=== PATIENT | female | born 1945 | race Caucasian/White ===

== ENCOUNTER 2017-06-21 10:08 | Emergency (ER) | payer OTHER ==
[~2017-06-21] VITALS: Ht 165.1 cm; Wt 99.8 kg
[~2017-06-21 10:08] MED LIST: ALBU90OI INH; ASPI81CH PO; AZIT250 PO; BENZ100A PO; CEPH500; CEPH500 PO; DOXY100 PO; FENO145 PO; FISH1000 PO; Flonase 0.05% N16 GM; Glucophage1000 MG PO; HORIZANT300 MG PO; HYDCHL12.5 PO; HYDMETSO BOTHEYES; Hydrochlorothia25 MG PO; IBUP800 PO; MUPI2TO TOP; NAPR375 PO; NEBI5 PO; Norco 5-325 Ta1 EACH PO; OXYACE5T PO; POTA8 PO; PROM25 PO; Prinivil10 MG PO; Pseudoephedrine30 MG PO; SULTRIDS PO; TIMO.5OPSO BOTHEYES; [UNRECOGNIZED DRUG - REMARK]
[2017-06-21] MEDS ORDERED: CLON.3TP TOP (10:37)
[2017-06-21] MEDS ORDERED: NITR.6SL SL (10:38)
[2017-06-21] MEDS ORDERED: Nortriptyline H10 MG PO (10:40)
[2017-06-21] MEDS ORDERED: Prednisone20 MG PO (11:11)
[2017-06-21] MEDS ORDERED: Percocet 5-3251 EACH PO (11:11)
== END 2017-06-21 11:17 | disposition home or self-care (01) ==
LOC: ER 10:08
DX: M10.9 Gout, unspecified (principal); Z88.5 Allergy status to narcotic agent; Z79.82 Long term (current) use of aspirin; Z79.899 Other long term (current) drug therapy; Z79.84 Long term (current) use of oral hypoglycemic drugs; I10 Essential (primary) hypertension; Z87.891 Personal history of nicotine dependence
CPT/HCPCS: 73630; 99283

== ENCOUNTER 2018-11-04 14:12 | Inpatient (IN) | payer OTHER ==
[~2018-11-04] VITALS: Ht 165.1 cm; Wt 87.1 kg
[~2018-11-04 14:12] MED LIST changes: -ASPI81CH PO; +Aspirin EC81 MG PO; +Catapres-Tts 21 EACH TOP; +FISH OIL 1,001000 MG PO; -FISH1000 PO; +NITR.6SL SL; +Nortriptyline H10 MG PO; +Percocet 5-3251 EACH PO; +Prednisone20 MG PO; -Prinivil10 MG PO; +ZESTRIL40 MG PO
[2018-11-04 15:04] LABS: BASOPHILS ABSOLUTE AUTO 0.03 K/mm3 (0.00-0.23); BASOPHILS PERCENT AUTO 1 % (0-2); EOSINOPHILS ABSOLUTE AUTO 0.14 K/mm3 (0.00-0.68); EOSINOPHILS PERCENT AUTO 2 % (0-6); Hematocrit 44.9 % (33.0-51.0); Hemoglobin 14.7 g/dL (11.5-16.0); IMMATURE GRAN ABSOLUTE AUTO 0.02 K/mm3 (0.00-0.10); IMMATURE GRAN PERCENT AUTO 0 % (0-1); LYMPHOCYTES ABSOLUTE AUTO 2.11 K/mm3 (0.84-5.20); LYMPHOCYTES PERCENT AUTO 35 % (21-46); MONOCYTES ABSOLUTE AUTO 0.54 K/mm3 (0.16-1.47); MONOCYTES PERCENT AUTO 9 % (4-13); Mean Corpuscular HGB 28.5 pg (26.0-34.0); Mean Corpuscular HGB Conc 32.7 g/dL (31.5-36.5); Mean Corpuscular Volume 87 fL (80-100); Mean Platelet Volume 11.8 fL (9.1-12.4); NEUTROPHILS ABSOLUTE AUTO 3.22 K/mm3 (1.96-9.15); NEUTROPHILS PERCENT AUTO 53 % (41-73); Platelet Count 155 K/mm3 (150-400); RDW Coefficient Variation 13.9 % (11.7-14.2); RDW Standard Deviation 44.9 fL (35.1-46.3); Red Blood Cell Count 5.16 M/mm3 (3.80-5.20); White Blood Cell Count 6.06 K/mm3 (4.00-11.30)
[2018-11-04 15:25] LABS: Troponin I 0.022 ng/mL (0.000-0.040)
[2018-11-04 15:27] LABS: Albumin, Blood 3.6 g/dL (3.4-5.0); Bilirubin, Total 0.9 mg/dL (0.1-1.0); Bun/Creatinine Ratio 24.7 (12.0-20.0); Calcium, Blood 9.2 mg/dL (8.5-10.1); Creatinine, Blood 0.97 mg/dL (0.40-1.00); Globulin, Blood 3.7 g/dL (2.2-4.0); Potassium, Blood 3.9 mmol/L (3.5-5.5); Total Protein, Blood 7.3 g/dL (6.4-8.2)
--- NOTE | 2018-11-04 17:23 | NUR ---
Per family request, I stayed with pt and family providing calm presence and assurance of care. Elva has a edy spirituality and was appreciaitve of prayer and certified genetic counselor. Both pt and family clearly worried, but they responded well to my interventions. Made several visits throughout afternoon. Pt and family awaiting test results and MD recomendations. I will remain available.
[2018-11-04] MEDS ORDERED: VITAMIN D5000 UNIT PO (21:26)
[2018-11-04] MEDS ORDERED: TEMA15 PO (21:32)
[2018-11-04] MEDS ORDERED: HYDRA50 PO (21:33)
[2018-11-04] MEDS ORDERED: COLCRYS0.6 MG PO (21:34)
[2018-11-04] MEDS ORDERED: SPIR25 PO (21:34)
[2018-11-04] MEDS ORDERED: CYAN1000I IM (21:34)
[2018-11-04] MEDS ORDERED: ALBU90OI61 INH (21:35)
[2018-11-04 22:05] LABS: International Normalized Ratio 0.93; Prothrombin Time Results 9.9 Sec (9.7-11.5)
--- NOTE | 2018-11-05 05:08 | NUR ---
PATIENT DENIED ANY FURTHER CHEST PAIN AFTER SHE FELL ASLEEP. PATIENT ABLE TO GET UP THIS MORNING TO COMMODE WITH OUT ANY CHEST PAIN. PATIENT STEADY ON HER FEET. PATIENT SON CAME IN AND VISITED WITH HER DURING THE NIGHT. MOVES AROUND IN BED INDEPENDENTLY.
[2018-11-05 05:44] LABS: BASOPHILS ABSOLUTE AUTO 0.05 K/mm3 (0.00-0.23); BASOPHILS PERCENT AUTO 1 % (0-2); EOSINOPHILS ABSOLUTE AUTO 0.16 K/mm3 (0.00-0.68); EOSINOPHILS PERCENT AUTO 2 % (0-6); Hematocrit 38.5 % (33.0-51.0); Hemoglobin 12.6 g/dL (11.5-16.0); IMMATURE GRAN ABSOLUTE AUTO 0.02 K/mm3 (0.00-0.10); IMMATURE GRAN PERCENT AUTO 0 % (0-1); LYMPHOCYTES ABSOLUTE AUTO 3.07 K/mm3 (0.84-5.20); LYMPHOCYTES PERCENT AUTO 40 % (21-46); MONOCYTES ABSOLUTE AUTO 0.62 K/mm3 (0.16-1.47); MONOCYTES PERCENT AUTO 8 % (4-13); Mean Corpuscular HGB 29.1 pg (26.0-34.0); Mean Corpuscular HGB Conc 32.7 g/dL (31.5-36.5); Mean Corpuscular Volume 89 fL (80-100); Mean Platelet Volume 11.3 fL (9.1-12.4); NEUTROPHILS ABSOLUTE AUTO 3.86 K/mm3 (1.96-9.15); NEUTROPHILS PERCENT AUTO 50 % (41-73); Platelet Count 143 K/mm3 (150-400); RDW Coefficient Variation 14.1 % (11.7-14.2); RDW Standard Deviation 45.7 fL (35.1-46.3); Red Blood Cell Count 4.33 M/mm3 (3.80-5.20); White Blood Cell Count 7.78 K/mm3 (4.00-11.30)
[2018-11-05 06:03] LABS: International Normalized Ratio 0.98; Prothrombin Time Results 10.4 Sec (9.7-11.5)
[2018-11-05 06:13] LABS: Anion Gap 6 mmol/L (6-16); Blood Urea Nitrogen 23 mg/dL (8-24); Bun/Creatinine Ratio 24.8 (12.0-20.0); CO2, Blood 27 mmol/L (21-32); Calcium, Blood 8.5 mg/dL (8.5-10.1); Chloride, Blood 109 mmol/L (98-108); Creatinine, Blood 0.93 mg/dL (0.40-1.00); Glomerular Filtration Rate >60 (60-); Glucose, Blood 107 mg/dL (70-99); Potassium, Blood 4.5 mmol/L (3.5-5.5); Sodium, Blood 142 mmol/L (136-145); Troponin I 0.042 ng/mL (0.000-0.040)
--- NOTE | 2018-11-05 06:36 | NUR ---
CONTINUE HEPARIN AT THE SAME RATE PER PHARMACY.
--- NOTE | 2018-11-05 08:20 | NUR ---
AM NOTE. ASSUMED CARE OF PT APROX 0700, PT IS A&Ox4 AND SBA TO THE BSC DUE TO CHEST PAIN AT THIS TIME. PT IS SCHEDULED FOR THE CATHLAB THIS EARLY AFTERNOON PER CARDIOLOGY PROVIDER. PT HAS BEEN NPO SINCE MIDNIGHT. PT'S VS STABLE AT THIS TIME. L/S CLEAR T/O ON RA WITH O2 >90%. NO EDEMA NOTED ON ASSESSMENT. PER CARDIOLOGY PROVIDER THE HEPARIN GTT IS TO BE TURNED OFF AT 1000. WILL CONTINUE TO MONITOR.
[2018-11-05 09:57] LABS: CHOL/HDL RATIO 2.8; Cholesterol 125 mg/dL (50-200); HDL Cholesterol 44 mg/dL (>39); LDL/HDL RATIO 1.4; Low Density Lipoprotein Chol 61 mg/dL (0-110); Triglycerides 99 mg/dL (30-160); Very Low Density Lipoprot Chol 19 mg/dL (6-32)
--- NOTE | 2018-11-05 10:44 | NUR ---
Echocardiogram completed.
--- NOTE | 2018-11-05 18:07 | NUR ---
SHIFT SUMMARY. NO ACUTE CHANGES NOTED THIS SHIFT. PT'S VS HAVE BEEN STABLE T/O SHIFT. PT HAS NOT C/O OF CHEST PAIN AT ALL THIS SHIFT. PT RETURNED FROM THE FUNERAL PLANNING COUNSELOR APROX 1400 WITH A RIGHT RADIAL SITE. PT'S VS STABLE AFTER FUNERAL PLANNING COUNSELOR. PT HAS BEEN UP TO THE BSC AND HAS WALKED TO THE BATHROOM TO VOID W/O ANY LIGHTHEADED/DIZZNESS AT THIS TIME. PT HAS HAD FAMILY AT THE BEDSIDE ALL DAY, THEY HAVE PROVIDED GOOD SUPPORT AND ENCOURAGMENT TO THE PT. HEPARIN GTT WAS STOPPED AT 1030 THIS SHIFT. PT DENIES ANY NUMB/TINGLING/PAIN TO HER RIGHT HAND/WRIST AT THIS TIME. CURRENTLY 4 MLS OF AIR HAS BEEN REMOVED FROM THE TR BAND, 6MLS REMAIN. WILL CONTINUE TO MONITOR UNTIL REPORT IS GIVEN TO ONCOMING RN.
--- NOTE | 2018-11-05 19:50 | NUR ---
ASSUMED CARE OF PT AT 1915. REPORT RECEIVED. PT PRESENTS IN RECLINER CHAIR IN NO APPARENT DISTRESS. ALERT AND ORIENTED. PLEASANT AND COOPERATIVE WITH CARE AND ASSESSMENT. TR BAND IN PLACE. AIR REMOVED FROM CUFF COMPLETE. NO S/S OOZING OR HEMATOMA. TEACHING ON WRIST RESTRICTIONS SECONDARY TO RADIAL ACCESS. PT VERBALIZES UNDERSTANDING. PT DENIES CHEST PAIN OR PRESSURE. WILL REVIEW CHART AND PLAN OF CARE FOR THIS PT.
--- NOTE | 2018-11-06 02:09 | NUR ---
PT HAS BLOOD GLUCOSE OF 69 AT HS. HAD PT EAT A SNACK TO KEEP SUGAR LEVEL UP. PT'S TR BAND HAS BEEN OFF. NO S/S BLEED OR HEMATOMA. TEGRADERM DRESSING OVER SITE. USING ARM BOARD TO PROTECT SITE. PT COMPLIANT WITH RESTRICTIONS FROM RADIAL ACCESS. WILL CONTINUE TO MONITOR.
[2018-11-06 07:00] LABS: BASOPHILS ABSOLUTE AUTO 0.04 K/mm3 (0.00-0.23); BASOPHILS PERCENT AUTO 1 % (0-2); EOSINOPHILS ABSOLUTE AUTO 0.25 K/mm3 (0.00-0.68); EOSINOPHILS PERCENT AUTO 4 % (0-6); Hematocrit 38.2 % (33.0-51.0); IMMATURE GRAN ABSOLUTE AUTO 0.01 K/mm3 (0.00-0.10); IMMATURE GRAN PERCENT AUTO 0 % (0-1); LYMPHOCYTES ABSOLUTE AUTO 2.11 K/mm3 (0.84-5.20); LYMPHOCYTES PERCENT AUTO 31 % (21-46); MONOCYTES ABSOLUTE AUTO 0.44 K/mm3 (0.16-1.47); MONOCYTES PERCENT AUTO 7 % (4-13); Mean Corpuscular HGB 28.1 pg (26.0-34.0); Mean Corpuscular HGB Conc 31.4 g/dL (31.5-36.5); Mean Corpuscular Volume 90 fL (80-100); Mean Platelet Volume 11.7 fL (9.1-12.4); NEUTROPHILS PERCENT AUTO 58 % (41-73); Platelet Count 114 K/mm3 (150-400); RDW Coefficient Variation 14.1 % (11.7-14.2); RDW Standard Deviation 46.2 fL (35.1-46.3); Red Blood Cell Count 4.27 M/mm3 (3.80-5.20); White Blood Cell Count 6.75 K/mm3 (4.00-11.30)
[2018-11-06 07:16] LABS: Anion Gap 5 mmol/L (6-16); Blood Urea Nitrogen 18 mg/dL (8-24); Bun/Creatinine Ratio 20.3 (12.0-20.0); CO2, Blood 26 mmol/L (21-32); Calcium, Blood 8.6 mg/dL (8.5-10.1); Chloride, Blood 111 mmol/L (98-108); Creatinine, Blood 0.89 mg/dL (0.40-1.00); Glomerular Filtration Rate >60 (60-); Glucose, Blood 102 mg/dL (70-99); Potassium, Blood 4.2 mmol/L (3.5-5.5); Sodium, Blood 142 mmol/L (136-145)
--- NOTE | 2018-11-06 07:48 | NUR ---
AM NOTE. ASSUMED CARE OF PT APROX 0700, PT IS A&Ox4 AND SBA/IND IN THE ROOM. PT IS S/P ANGIO WITH NO STENT PLACEMENT, PT HAS RIGHT WRIST ANGIO SITE WITH TEGADERM IN PLACE, SMALL AREA OF DRY BLOOD IS NOTED, NO SWELLING, REDNESS OR HEMATOMA NOTED. PT HAS ALL SENSATION, DENIES ANY NUMB/TINGLING TO THE RIGHT HAND/WRIST. PT'S VS STABLE, NO EDEMA NOTED ON ASSESSMENT, L/S CLEAR T/O DIM IN THE BASES, PT IS ON RA WITH O2 SATS >90%. CALL LIGHT IN REACH, BED IS LOCKED AND LOW WILL CONTINUE TO MONITOR.
[2018-11-06] MEDS ORDERED: AMLO5 PO (10:35)
[2018-11-06] MEDS ORDERED: CLOP75 PO (10:36)
[2018-11-06] MEDS ORDERED: ATORVASTATIN CA20 MG PO (10:36)
[2018-11-06] MEDS ORDERED: Isosorbide Mono30 MG PO (10:37)
[2018-11-06] MEDS ORDERED: METO50ER PO (10:37)
[2018-11-06] MEDS ORDERED: Nitrostat0.4 MG SL (10:43)
== END 2018-11-06 11:38 | disposition home or self-care (01) | DRG 281 ==
LOC: ER 14:12 → PCU 20:39
PROVIDERS: Emergency Medicine; Internal Medicine; Nurse Practitioner Acute Care; Physician Assistant; ADMIT Hospitalist
PROC: 4A023N7 Measurement of Cardiac Sampling and Pressure, Left Heart, Percutaneous Approach (ICD-10-PCS; principal; 2018-11-05)
PROC: B211YZZ Fluoroscopy of Multiple Coronary Arteries using Other Contrast (ICD-10-PCS; 2018-11-05)
DX: I21.4 Non-ST elevation (NSTEMI) myocardial infarction (principal); I43 Cardiomyopathy in diseases classified elsewhere; I10 Essential (primary) hypertension; E78.5 Hyperlipidemia, unspecified; E11.9 Type 2 diabetes mellitus without complications; I11.9 Hypertensive heart disease without heart failure; E66.9 Obesity, unspecified; Z68.32 Body mass index [BMI] 32.0-32.9, adult; Z88.5 Allergy status to narcotic agent; Z79.02 Long term (current) use of antithrombotics/antiplatelets; Z79.82 Long term (current) use of aspirin; Z79.899 Other long term (current) drug therapy; Z87.891 Personal history of nicotine dependence
CPT/HCPCS: 36415; 71046; 80048; 80053; 80061; 82947; 83690; 83735; 83880; 84484; 85025; 85610; 85730; 86850; 86900; 86901; 93005; 93010; 93306; 93458; 99152; 99153; 99285-25; A9270; C1769; C1894; J0360; J1644; J2250; J2270; J3010; J7030; Q9967

== ENCOUNTER → 2020-07-08 | Outpatient (CLI) | payer OTHER ==
[~2020-07-08] MED LIST changes: +ALBU90OI61 INH; +AMLO5 PO; +ATORVASTATIN CA20 MG PO; +CLOP75 PO; +COLCRYS0.6 MG PO; +CYAN1000I IM; +HYDRA50 PO; +Isosorbide Mono30 MG PO; +METO50ER PO; +Nitrostat0.4 MG SL; +SPIR25 PO; +TEMA15 PO; +VITAMIN D5000 UNIT PO
== END ==
LOC: PLD 13:30 → LAB SHORT 13:30
DX: N39.0 Urinary tract infection, site not specified (principal)
CPT/HCPCS: 87086

== ENCOUNTER 2023-03-16 08:29 | Day surgery (SDC) | payer OTHER ==
[~2023-03-16] VITALS: Ht 165.1 cm; Wt 93.9 kg
[2023-03-16] VITALS (12 sets, daily range): BP systolic 88–155; BP diastolic 35–69
[~2023-03-16 08:29] MED LIST changes: +BUSPIRONE HCL5 M5 PO; +LOSARTAN-HCTZ1 EACH PO; +MAGNESIUM PO
--- NOTE | 2023-03-16 09:36 | NUR ---
History, Chart, Medications and Allergies reviewed before start of procedure. Lungs clear T/O to Auscultation. Patient confirms NPO status and agrees with scheduled surgery. Pre-Op teaching done. Pt verbalizes understanding. Patient reports completing Chlorhexadine shower X2 prior to admission to hospital.
--- NOTE | 2023-03-16 13:28 | NUR ---
03/16/23 1328 Wendy Cano LMA PLACED BY DR. VEGA AT 1305 D/T PT'S SPINAL NERVE BLOCK STARTING TO WEAR OFF. PT TOLERATED WELL.
--- NOTE | 2023-03-16 17:39 | NUR ---
SUMMARY NO ACUTE CHANGES SINCE ARRIVING TO UNIT FROM PACU. PT C/O OF PAIN TO RLE, MEDICATED PER ORDERS; PT NOW REPORTS PAIN TOLERABLE, RATING 4/10. HAS NOT BEEN UP. AWAITING FIRST VOID POST SURGERY. IV FLUIDS INFUSING. CALL LIGHT IN REACH.
[2023-03-17 02:24] VITALS: BP 131/48
[2023-03-17 04:21] LABS: BASOPHILS ABSOLUTE AUTO 0.02 K/mm3 (0.00-0.23); BASOPHILS PERCENT AUTO 0 % (0-2); EOSINOPHILS ABSOLUTE AUTO 0.08 K/mm3 (0.00-0.68); EOSINOPHILS PERCENT AUTO 1 % (0-6); Hematocrit 33.5 % (33.0-51.0); Hemoglobin 10.6 g/dL (11.5-16.0); IMMATURE GRAN ABSOLUTE AUTO 0.03 K/mm3 (0.00-0.10); IMMATURE GRAN PERCENT AUTO 0 % (0-1); LYMPHOCYTES ABSOLUTE AUTO 1.38 K/mm3 (0.84-5.20); LYMPHOCYTES PERCENT AUTO 14 % (21-46); MONOCYTES ABSOLUTE AUTO 0.59 K/mm3 (0.16-1.47); MONOCYTES PERCENT AUTO 6 % (4-13); Mean Corpuscular HGB 26.8 pg (26.0-34.0); Mean Corpuscular HGB Conc 31.6 g/dL (31.5-36.5); Mean Corpuscular Volume 85 fL (80-100); Mean Platelet Volume 11.6 fL (9.1-12.4); NEUTROPHILS PERCENT AUTO 78 % (41-73); Platelet Count 120 K/mm3 (150-400); RDW Coefficient Variation 15.2 % (11.7-14.2); RDW Standard Deviation 46.5 fL (35.1-46.3); Red Blood Cell Count 3.95 M/mm3 (3.80-5.20)
--- NOTE | 2023-03-17 04:22 | NUR ---
SHIFT SUMMARY POD 1 R MOIZ. NO ACUTE CHANGES. PT RESTED WELL LAST NIGHT. UP WITH 1 ASSIST USING FWW + GB. PRINEO REMAINS CDI. VOIDING SPONTANEOUSLY. 2 ROXICODONE/TYLENOL/TORADOL FOR PAIN MANAGEMENT. IV SL. KELLEY PO. OCCASSIONALLY NAUSEATED R/T PAIN MEDS. NO EMESIS. PLAN TO DISCHARGE HOME TODAY AFTER THERAPY. USES CALL LIGHT APPROPRIATELY.
[2023-03-17 04:39] LABS: Bun/Creatinine Ratio 15.9 (12.0-20.0); Calcium, Blood 8.3 mg/dL (8.5-10.1); Creatinine, Blood 1.26 mg/dL (0.40-1.00); Magnesium, Blood 1.9 mg/dL (1.6-2.4); Potassium, Blood 3.8 mmol/L (3.5-5.5)
[2023-03-17 07:22] VITALS: BP 143/58
[2023-03-17] MEDS ORDERED: ACET500 PO ×2 (09:37)
[2023-03-17] MEDS ORDERED: XARELTO20 MG PO ×2 (09:38)
[2023-03-17] MEDS ORDERED: OXYC5 PO ×2 (09:38)
--- NOTE | 2023-03-17 09:50 | NUR ---
PT DECLINED MORNING MEDS STATED SHE WILL TAKE WHEN SHE GETS HOME. DISCHARGING TODAY. NAUSEATED AT THIS TIME, MEDICATED PER ORDERS. RECLINING IN CHAIR WITH POLAR PACK ON AND CALL LIGHT IN REACH.
[2023-03-17 11:01] VITALS: BP 141/51
--- NOTE | 2023-03-17 11:02 | NUR ---
DISCHARGING VSS. DC'D IV, CATHETER INTACT. REVIEWED DC INSTRUCTIONS WITH PT, VERBALIZED UNDERSTANDING.
--- NOTE | 2023-03-17 11:08 | NUR ---
DISCHARGED PT LEFT UNIT IN WC W/POSSESSIONS, DC INSTRUCTIONS, AND POLAR PACK IN HAND, ACCOMPANIED BY SPOUSE.
== END 2023-03-17 11:10 | disposition home or self-care (01) ==
LOC: ORSCMMR 08:29 → ORD 10:45 → SURS 14:43 → ORSCMMR 03-17 11:10 → SURS 03-17 11:10
PROVIDERS: Orthopaedic Surgery
PROC: 0SR90JA Replacement of Right Hip Joint with Synthetic Substitute, Uncemented, Open Approach (ICD-10-PCS; principal; 2023-03-16 10:45)
DX: M16.11 Unilateral primary osteoarthritis, right hip (principal); E78.5 Hyperlipidemia, unspecified; I10 Essential (primary) hypertension; I25.2 Old myocardial infarction; Z79.01 Long term (current) use of anticoagulants; Z87.891 Personal history of nicotine dependence; Z68.35 Body mass index [BMI] 35.0-35.9, adult
CPT/HCPCS: 36415; 72170; 80048; 82947; 83735; 85025; 97110; 97116; 97162; A9270; C1776; J0171; J0690; J0735; J1170; J1885; J2250; J2405; J2704; J2765; J2795; J3010; J7120

== ENCOUNTER 2023-03-22 14:59 | Emergency (ER) | payer OTHER ==
[~2023-03-22] VITALS: Ht 165.1 cm; Wt 93.9 kg
[~2023-03-22 14:59] MED LIST changes: +ACET500 PO; +OXYC5 PO; +XARELTO20 MG PO
[2023-03-22] MEDS ORDERED: ONDA4ODT (15:20)
[2023-03-22 16:07] VITALS: BP 171/67
[2023-03-22] MEDS ORDERED: Magic Bullet10 MG PR (16:18)
== END 2023-03-22 16:45 | disposition home or self-care (01) ==
LOC: ER 14:59
DX: K59.00 Constipation, unspecified (principal); I10 Essential (primary) hypertension; E11.9 Type 2 diabetes mellitus without complications; M19.90 Unspecified osteoarthritis, unspecified site; Z87.891 Personal history of nicotine dependence; Z79.01 Long term (current) use of anticoagulants; Z79.899 Other long term (current) drug therapy
CPT/HCPCS: 74018; 99283-25